=== PATIENT | female | born 1955 | race Caucasian/White ===

== ENCOUNTER → 2019-12-12 08:13 | Outpatient (CLI) | payer MEDICARE, OTHER, SELFPAY ==
--- NOTE | 2019-12-12 08:17 | US_ITS ---
STUDY: ABDOMINAL ULTRASOUND - RIGHT UPPER QUADRANT REASON FOR VISIT: Female, 63 years old elevated liver enzymes TECHNIQUE: Ultrasound evaluation of the right upper quadrant was performed with real-time and static vu-scale imaging. TECHNICAL QUALITY: Adequate. COMPARISON: None. FINDINGS: Liver: The liver measures 16.2 cm. There is increased echogenicity consistent with fatty infiltration. The bile ducts are within normal limits. There is hepatic color flow. The direction of portal flow is hepatopetal. There is no demonstrated mass lesion. Gallbladder: Normal distended gallbladder. The gallbladder wall measures 2.7 mm. There is a negative sonographic Calero''s sign. There is no pericholecystic fluid. There are no gallstones. Common Bile Duct (C.B.D.): The common bile duct measures 5.5 mm. Pancreas: Normal size of the head, body of the pancreas. The tail portion is obscured due to overlying bowel gas. There is increased echogenicity of the pancreas. There is no demonstrated pancreatic mass or cyst. Right Kidney: Normal size of the right kidney. The right kidney measures 10.7 cm x 4.4 cm x 5.5 cm. Normal renal cortex. The right cortex measures 1.6 cm. There is no demonstrated renal mass or cyst. There is no right hydronephrosis. US/Abdomen Limited IMPRESSION: Fatty infiltration of the liver. Electronically Signed: Bobby Todd, at 13:12 EST , Service support ,
== END ==
PROVIDERS: PCP Nurse Practitioner; Referring Provider Nurse Practitioner; Visit Provider Nurse Practitioner
DX: R74.8 Abnormal levels of other serum enzymes (principal)
CPT/HCPCS: 76705

== ENCOUNTER → 2020-02-25 14:10 | Outpatient (CLI) | payer MEDICARE, OTHER, SELFPAY ==
--- NOTE | 2020-02-25 14:12 | BI_ITS ---
MAMMOGRAPHY - BILATERAL SCREENING REASON FOR EXAM: Female, 64 years old. Routine annual screening examination. PERTINENT HISTORY: Non-contributory. Prior right excisional breast biopsy. TECHNIQUE: Digital bilateral breast yumiko (3D mammographic acquisition) in the CC and MLO projections. 2-D mediolateral oblique (MLO) and craniocaudad (CC) views of both breasts were obtained. CAD: Full Field Digital Mammography with Computer Added Detection was performed. COMPARISON: Comparison is made with prior outside examination dated 07/12/2016. FINDINGS: Breast Composition: The breasts are heterogeneously dense, which may obscure small masses. There are no dominant masses or suspicious calcifications. Stable small benign appearing bilateral axillary lymph nodes. No other significant abnormalities are identified. There has been no significant change since the prior study. BI/SCRN MAMM (CAD)W/YUMIKO BILAT IMPRESSION: Stable bilateral screening mammogram. Yearly follow-up mammogram recommended. (A) ASSESSMENT CATEGORY: BIRADS Category 2: Benign. A letter regarding these results will be sent to the patient by the facility within 30 days. Approximately 10% of breast cancers are not detected by mammography. A normal mammogram should not delay biopsy of a clinically suspicious abnormality. [id number] Electronically Signed: Bobby Todd MD at 15:28 EST , Service support ,
--- NOTE | 2020-02-25 14:15 | BD_ITS ---
STUDY: DUAL ENERGY X-RAY ABSORPTIOMETRY / DXA REASON FOR EXAM: Female, 64 years old. 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 COMPARISON: None. FINDINGS: Lumbar Spine (L1-L4): g/cm2 (1.213) / T-score (0.1) / Z-score (1.7) Findings are suggestive of normal bone density with a low fracture risk. Left Femur Total: g/cm2 (0.897) / T-score (-0.9) / Z-score (0.3) Left Femoral Neck: g/cm2 (0.867) / T-score (-1.2) / Z-score (0.2) Right Femur Total: g/cm2 (0.859) / T-score (-1.2) / Z-score (0.0) Right Femoral Neck: g/cm2 (0.819) / T-score (-1.6) / Z-score (-0.1) BD/Dexa Bone Density Study IMPRESSION: The patient is considered osteopenic as outlined below according to World [employer] Organization (WHO) criteria with a moderate fracture risk. Reference Information: The T-score is the number of standard deviations above or below the standard which is normal for young adults at their peak bone mineral density. The World Health Organization (WHO) interprets the T-scores as follows: Above -1 Normal bone density Between -1 and -2.5 Osteopenia Equal to / or below -2.5 Osteoporosis As a practical clinical guideline, osteopenia may be graded as follows: Mild -1 through -1.5 Moderate -1.6 through -2.0 Severe -2.1 through -2.4 The Z-score is the number of standard deviations above or below age-matched controls. A Z-score of less than -1.5 would be considered abnormal. References: 1. NIH Osteoporosis and Related Bone Diseases www osteo.org 2. International Society for Clinical Densitometry www iscd.org 3. National Osteoporosis Foundation www nof.org Electronically Signed: Bobby Todd MD at 12:22 EST , Service support ,
== END ==
PROVIDERS: PCP Nurse Practitioner; Visit Provider Nurse Practitioner
DX: Z12.31 Encounter for screening mammogram for malignant neoplasm of breast (principal); Z78.0 Asymptomatic menopausal state
CPT/HCPCS: 77063; 77067; 77080

== ENCOUNTER 2020-09-23 15:00 | Outpatient (RCR) | payer MEDICARE, OTHER, SELFPAY ==
--- NOTE | 2020-09-07 12:35 | HP.PTEVAL ---
Patient's Visit Information PITA CALDERON is a 64 year old F referred to Physical Therapy by ASHISH Sen with a diagnosis of L hip pain. Date of Evaluation: 09/01/20 Physical Therapist: Pascual Lance DPT - Visit Plan Frequency: 2x /Week Duration: 4 Weeks Plan: Start with light extension progression, light core stability, and IT abd/hip ER stretching as tolerated. Progress as patient progresses. - Subjective Pt. is here today for her initial evaluation with diagnosis of L hip pain. She has been reporting increased L hip pain for a few months now. She reports having xray showing arthritis in her hip. She reports overall pain lateral hip pain and posterior hip pain. She reports increased pain walking, standing, bending over. Decreased pain: sitting, staying off her hip. Pt. denies N/T in either LE. Pt. denies groin pain. She is sleeping okay, but does have increased stiffness in AMs. Pt. has had no changes in B/B. She does reports a heavy feeling in her L thigh at times with walking and posterior thigh pain with walking at times, especially in AMs and after prolonged sitting. Pt. is hopeful to reduce her symptoms of her L leg allowing increased tolerance to all daily activities. - Pain L lateral hip Pain Intensity (Out of 10): 2 Pain Intensity Range: 0, 7 L posterior thigh Pain Intensity (Out of 10): 2 Pain Intensity Range: 0, 7 - Objective POSTURE: Pt. has decent posture in stance. No lateral shift noted. Pt. has normal hip positioning in stance. She has anterior pelvic tilt and increased lumbar flexion in stance. PALAPTION: Pt. has tenderness at L PSIS and along SI joint on L side. Pt. has no lateral greater trochanteric pain. pt. does have some tenderness along piriformis muscle belly. NEURO: pt. has normal sensation and normal DTR of BLEs. Pt. is able to rise on heels and toes without issues or loss of balance. ROM: LUMABR SPINE: flexion min loss increase NW, EXT min/mod loss increase NW, SB min loss Navjot NE, rotation min loss bilat NE. L hip: flexion 120deg NE, abd 45deg NE, ER 75deg NE, IR 30deg NE. MMT: PT. has 4+/5 strength throughout BLEs. Pt. has poor+ core strength. 4/5 B hip extnsion and abd. GAIT: pt. has decent gait pattern. She has reduced hip extension bilat resulting in decreased step length. Pt. did have positive response with walking post extension. - Special Tests L/S Slump test left side: Positive L/S Slump test right side: Negative L/S Left Straight Leg Raise: Negative L/S Right Straight Leg Raise: Negative L/S Left Femoral Nerve Tension: Negative L/S Right Femoral Nerve Tension: Negative Lumbar Standing: Flexion - Mechanical Response: No effect Lumbar Standing: Flexion - Symptoms During Testing: Increases Lumbar Standing: Flexion - Symptoms After Testing: No worse Lumbar Standing: Extension - Mechanical Response: No effect Lumbar Standing: Extension - Symptoms During Testing: Decreases Lumbar Standing: Extension - Symptoms After Testing: Better Comments:: pt. repots being able to walk better post REIL, small ROM note Lumbar Standing: Right Side Glides - Mechanical Response: No effect Lumbar Standing: Right Side [place] - Symptoms During Testing: No effect Lumbar Standing: Right Side [place] - Symptoms After Testing: No effect Lumbar Standing: Left Side [place] - Mechanical Response: No effect Lumbar Standing: Left Side [place] - Symptoms After Testing: No effect Lumbar Lying: Flexion - Symptoms After Testing: No effect Lumbar Lying: Extension - Mechanical Response: No effect Lumbar Lying: Extension - Symptoms During Testing: Increases Lumbar Lying: Extension - Symptoms After Testing: Better Comments:: again she reports decreased symptoms with walking after extension progressi L Hip Scour: Negative L Hip PATTI - Intraarticular Pathology: Negative L Hip FADDIR - Labrum: Negative L Hip Jose - IT Band: Negative Comment: Tightness noted in hip ER and IT band, no pain noted - Goals Goal 1:: LTG: Pt. to be I with HEP. Goal Time Frame: 2-4 Weeks Goal 2:: STG: Pt. to have increased lumbar and hip ER ROM by 25% allowing for increased general mobility. Goal Time Frame: 2 Weeks Goal 3:: LTG: Pt. to have increased tolerance with walking, being able to walk to complete 6 MWT with 1400' with 0-2/10 pain in LLE. Goal Time Frame: 4-6 Weeks Goal 4:: LTG: Pt. to have increased B hip and core strength increased to at least 4+/5 without increase in symptoms. Goal Time Frame: 4-6 Weeks Goal 5:: STG: Pt. to be able to sit for 20-30minutes then walk with 0-2/10 pain in LLE. Goal Time Frame: 2-4 Weeks Goal 6:: LTG: Pt. to complete all work and recreational activities with 0-2/10 pain in L hip and L LE. Goal Time Frame: 4-6 Weeks - Rehabilitation Potential Physical Therapy Diagnosis: Pt. has signs and symptoms consistent with L hip pain. She has good ROM of her L hip and decent strength. I do think her symptoms might be more originating from lumbar spine or more of a piriformis syndrome. I would like her to work on ROM of lumbar spine and hip ER progressing to stability exercises of B hips and lumbar spine as tolerated. Rehabilitation Potential: Excellent - Anticipated Interventions Patient/Client Instruction: Educate patient on: Condition, Plan of Care, Risk Factors, Benefits of Fitness Program For the Purpose of:: To foster healthy habits, To improve decision making, To facilitate caregiver knowledge, To improve self management, To prevent re-injury, To improve ability to perform tasks related to life management Therapeutic Exercise to Include: Strength training, Balance training, Coordination, Body mechanics, Postural training, Flexibilty training, Gait and locomotor training, Passive ROM, Active ROM, Dynamic Lumbar Stabilization, Maria Eugenia Exercises For the Purpose of:: To decrease pain, To increase ROM, To improve nutrient delivery to tissue, To increase oxygenation perfusion, To improve muscle performance and motor function, To improve ability to perform ADL's, To improve gait and locomotor functions, To improve health of tissue, To decrease soft tissue restriction, To increase flexibility/ROM Manual Therapy Techniques to Include: Mobilization, Functional dry needling, Soft tissue mobilization For the Purpose of:: To decrease pain, To decrease swelling/inflammation, To increase ROM, To improve nutrient delivery to tissue, To increase oxygenation perfusion Cryotherapy (ice pack, ice massage): Yes Ultrasound (thermal/non thermal): Yes For the Purpose of:: To decrease pain, To decrease swelling/inflammation, To increase ROM Thank you for the opportunity to evaluate your patient. For Medicare and Medicare HMO plans, please review the plan of care and approve it. It will need to be FAXED BACK to us at [phone] for Medicare purposes. For Medicare only, by signing this I certify the plan of care. Please let me know if there are questions or concerns regarding this plan of care. Physician Signature: Date:
--- NOTE | 2020-09-23 15:22 | HP.PTDCSUM_ITS ---
It has been my pleasure to treat PITA CALDERON referred by Malini Faulkner, ASHISH, with the diagnosis of L hip pain for a total of 6 visit(s). Discharge Date: 09/23/20 Please see the following information for a summary of their discharge status. Subjective: Pt feels that PT went well and will continue with HEP. She still has pain going up the steps a little bit. She feels comfortable with her HEP. Her biggest goal was to walk around [place].... she just gets fatigued and not horrible pain. L lateral hip Pain Intensity (Out of 10): 0 L posterior thigh Pain Intensity (Out of 10): 0 % Improvement: 65 Objective/Function: LE MMT: B hip flex 4/5, B hip abd 4/5, B hip ext 4-/5, B knee flex 4/5, B knee ext 4/5. Pt is limited with hip IR still B but functional. Pt's hip ER is good. Goal 1:: LTG: Pt. to be I with HEP. Goal Progress: Goal Met Goal 2:: STG: Pt. to have increased lumbar and hip ER ROM by 25% allowing for increased general mobility. Goal Progress: Goal Met Goal 3:: LTG: Pt. to have increased tolerance with walking, being able to walk to complete 6 MWT with 1400' with 0-2/10 pain in LLE. Goal Progress: Goal Met Goal 4:: LTG: Pt. to have increased B hip and core strength increased to at least 4+/5 without increase in symptoms. Goal Progress: Progressing Goal 5:: STG: Pt. to be able to sit for 20-30minutes then walk with 0-2/10 pain in LLE. Goal Progress: Goal Met Goal 6:: LTG: Pt. to complete all work and recreational activities with 0-2/10 pain in L hip and L LE. Goal Progress: Goal Met Plan: DC PT to HEP Discharge Comments: DC PT to HEP If there are questions or concerns regarding this patient's physical therapy, please feel free to call me at [phone]. Thank you for the referral of this patient. Sincerely, Ally Brooks, MPT Balance/Gait/Functional tests - Balance/Special Test Scores Lower Extremity Functional Score: 69
== END 2020-09-23 19:00 | disposition home or self-care (01) ==
LOC: PT 15:00
PROVIDERS: PCP Nurse Practitioner; Referring Provider Nurse Practitioner; Visit Provider Nurse Practitioner
DX: M25.552 Pain in left hip (principal)
CPT/HCPCS: 97110; 97140; 97161; 97530

== ENCOUNTER → 2021-11-25 | Outpatient (CLI) | payer MEDICARE, OTHER, SELFPAY ==
--- NOTE | 2021-11-25 13:08 | US_ITS ---
STUDY: THYROID ULTRASOUND REASON FOR EXAM: Female, 65 years old. Palpably enlarged thyroid TECHNIQUE: Ultrasound evaluation of the thyroid was performed with real-time and static vu-scale imaging. COMPARISON: None. FINDINGS: RIGHT LOBE: The right lobe of the thyroid gland measures 5.0 x 1.4 x 1.3 cm. There is a heterogeneous echotexture. There is a simple 2 x 4 x 2 mm cyst. LEFT LOBE: The left lobe of the thyroid gland measures 4.8 x 1.4 x 1.1 cm. There is a heterogeneous echotexture. There is a complex solid/cystic 1.1 x 0.8 x 0.4 cm nodule. No specific follow-up needed. ISTHMUS: The isthmus measures 1.8 mm. The regional lymph nodes are normal. US/Head/Neck Soft Tissue IMPRESSION: Borderline enlarged thyroid with a complex solid and cystic 1.1 x 0.8 x 0.4 cm nodule. No specific follow-up needed. Simple 2 x 4 x 2 mm cyst in the right thyroid lobe. No specific follow-up needed Electronically Signed: Kraig Bourne MD at 13:44 EDT ,
== END | disposition home or self-care (01) ==
LOC: US 13:04
PROVIDERS: PCP Nurse Practitioner Family; Referring Provider Nurse Practitioner Family; Visit Provider Nurse Practitioner Family
DX: E04.9 Nontoxic goiter, unspecified (principal)
CPT/HCPCS: 76536

== ENCOUNTER → 2021-12-03 | Outpatient (CLI) | payer MEDICARE, OTHER, SELFPAY ==
--- NOTE | 2021-12-03 12:28 | BI_ITS ---
MAMMOGRAPHY - BILATERAL SCREENING REASON FOR EXAM: Female, 65 years old. Routine annual screening examination. PERTINENT HISTORY: Non-contributory. Remote right excisional breast biopsy. TECHNIQUE: Digital bilateral breast yumiko (3D mammographic acquisition) in the CC and MLO projections. 2-D mediolateral oblique (MLO) and craniocaudad (CC) views of both breasts were obtained. CAD: Full Field Digital Mammography with Computer Added Detection was performed. COMPARISON: Comparison is made with prior study dated 02/25/2020. FINDINGS: Breast Composition: The breasts are heterogeneously dense, which may obscure small masses. There are no dominant masses or suspicious calcifications. No other significant abnormalities are identified. There has been no significant change since the prior study. BI/SCRN MAMM (CAD)W/YUMIKO BILAT IMPRESSION: Stable bilateral screening mammogram. Yearly follow-up mammogram recommended. (A) ASSESSMENT CATEGORY: BIRADS Category 1: Negative. A letter regarding these results will be sent to the patient by the facility within 30 days. Approximately 10% of breast cancers are not detected by mammography. A normal mammogram should not delay biopsy of a clinically suspicious abnormality. [id number] Electronically Signed: Bobby Todd MD at 13:23 EDT ,
== END | disposition home or self-care (01) ==
LOC: OPBI 12:27
PROVIDERS: PCP Nurse Practitioner Family; Referring Provider Nurse Practitioner Family; Visit Provider Nurse Practitioner Family
DX: Z12.31 Encounter for screening mammogram for malignant neoplasm of breast (principal)
CPT/HCPCS: 77063; 77067

== ENCOUNTER 2022-08-25 17:24 | Emergency (ER) | payer MEDICARE, OTHER, SELFPAY ==
[2022-08-25 17:27] VITALS: BP 118/71; PULSE 81; RESP 14; TEMP 36.2; O2SAT 97; BMI 34.0
--- NOTE | 2022-08-25 17:33 | EX.ED.UPPERE ---
HPI <LUCIEN Mckeon - Last Filed: 08/25/22 18:15> History of Present Illness Chief Complaint: Upper Extremity Injury Narrative Narrative: 66-year-old female tripped and landed on her right shoulder and cannot move it due to pain. No head injury or LOC. She is right-hand dominant. Denies weakness numbness or tingling. PFSH <LUCIEN Mckeon - Last Filed: 08/25/22 18:15> PFSH Medical History Hypertension Home Medications azithromycin 250 mg tablet See Rx Instructions PO .COMPLEX #6 tabs 09/11/20 [Rx Last Taken Unknown] cetirizine 10 mg capsule (All Day Allergy (cetirizine)) 10 mg PO DAILY PRN 09/11/20 [History Last Taken Unknown] fluoxetine 10 mg capsule 10 mg PO DAILY 09/11/20 [History Last Taken Unknown] levothyroxine 13 mcg capsule 13 mcg PO DAILY 09/11/20 [History Last Taken Unknown] losartan 25 mg tablet 25 mg PO DAILY 09/11/20 [History Last Taken Unknown] vitamin B comp and C no.3 15 mg-10 mg-50 mg-5 mg-300 mg capsule (B Complex Plus Vitamin C) 1 cap PO DAILY 09/11/20 [History Last Taken Unknown] hydrocodone-acetaminophen 5-325mg 5mg-325mg 1 tab PO Q6H PRN pain 3 days #12 tabs 08/25/22 [Rx Last Taken Unknown] Allergy/AdvReac Type Severity Reaction Status Date / Time Penicillins Allergy Unknown UNKNOWN Verified 08/25/22 17:27 Sulfa (Sulfonamide Allergy Unknown UNKNOWN Verified 08/25/22 17:27 Antibiotics) Family History Other Heart disease Social History Smoking Status: Never smoker ROS <LUCIEN Mckeon - Last Filed: 08/25/22 18:15> ROS ED ROS Narrative CVS: Negative for chest pain. Respiratory: Negative for shortness of breath. GI: Negative for nausea, vomiting. Neuro: Negative for motor/sensory dysfunction. Skin: Negative for wound. Musc: Positive for right shoulder pain, trauma. Heme: Negative for easy bruising, bleeding, lymphadenopathy. EXAM <LUCIEN Mckeon - Last Filed: 08/25/22 18:15> Physical Exam Narrative Exam Narrative: CONST: Patient sitting in no acute distress. EYES: Normal inspection. HEAD: Normocephalic atraumatic. NECK: Normal inspection. No midline spinal tenderness, no step off or crepitus. RESP: No respiratory distress, CTAB. CVS: Regular rate and rhythm, no murmur, no gallop. ABD: Soft and nontender, no guarding or rebound, nondistended. SKIN: Color normal, no rash, warm, dry, intact. EXTREMITIES: Holding right arm adducted, tender to palpation over anterior shoulder and proximal humerus. Sensation intact in axillary median radial ulnar distributions, distal strength intact, 2+ radial pulse with brisk cap refill. No tenderness of the LUE or bilateral lower extremities. NEURO: Oriented x4. PSYCH: Normal affect. Const Vital Signs: 08/25/22 17:27 Temperature 97.1 F L Temperature Source Temporal Pulse Rate 81 Respiratory Rate 14 Blood Pressure 118/71 Blood Pressure Mean 86 Pulse Ox 97 Oxygen Delivery Method Room Air MDM <LUCIEN Mckeon - Last Filed: 08/25/22 18:15> [facility] Narrative Medical decision making narrative: History gathered from patient and spouse Patient had mechanical fall onto her right shoulder. Holding it abducted and diffusely tender over the shoulder and proximal humerus. No deformity. Distally neurovascularly intact. ED attending interpretation of right shoulder x-ray shows acute proximal humerus fracture so she was placed in a sling and swath and treated with morphine. I prescribed [place] and provided orthopedic referral and she was discharged in stable condition. Differential: Shoulder contusion, fracture, dislocation <Dr. Drew Smith MD - Last Filed: 08/25/22 18:41> [facility] Narrative Medical decision making narrative: History gathered from patient and spouse Patient had mechanical fall onto her right shoulder. Holding it abducted and diffusely tender over the shoulder and proximal humerus. No deformity. Distally neurovascularly intact. ED attending interpretation of right shoulder x-ray shows acute proximal humerus fracture so she was placed in a sling and swath and treated with morphine. I prescribed [place] and provided orthopedic referral and she was discharged in stable condition. Differential: Shoulder contusion, fracture, dislocation I have personally performed a face to face assessment of the patient and have reviewed the EUSEBIO Note. I performed a substantive portion of the visit including all aspects of the following. My murillo findings include: History is remarkable for mechanical fall. She landed on her right shoulder. She presents because she cannot move her right upper extremity without causing significant pain in the shoulder. She denies loss of conscious. Denies headache. She denies neck pain. She denies paresthesia, anesthesia motors. She denies cardiac respiratory symptoms. Denies black or maroon-colored stool. Exam is remarkable for patient holding her right upper extremity internally rotated and abducted. Axillary, median, radial and ulnar function intact. There is no pain the patient over the digits, hand or wrist. Medical Decision Making three-view x-ray of the shoulder was obtained which reveals a nondisplaced fracture proximal humerus at the surgical neck. This was independently reviewed interpreted by me. Patient was playing is in a sling and swath. She was instructed to do med pendulous movement after couple of days and she was referred to the orthopedist on-call. Other additions or changes: Patient did receive an additional dose of opiate analgesia prior to discharge. She was sent home with prescription for opiate analgesia. Discharge Plan Triage Chief Complaint: Upper Extremity Injury ED Midlevel Provider: Matilda Gama ED Provider: Drew Smith Dx/Rx/DC Orders Clinical Impression: Fracture of humerus, proximal, right, closed Instructions: ED Fracture, Shoulder Prescriptions: New hydrocodone-acetaminophen 5-325 mg tablet 1 tab PO Q6H PRN (Reason: pain) 3 Days Qty: 12 0RF No Action fluoxetine 10 mg capsule 10 mg PO DAILY losartan 25 mg tablet 25 mg PO DAILY levothyroxine 13 mcg capsule 13 mcg PO DAILY All Day Allergy (cetirizine) 10 mg capsule 10 mg PO DAILY PRN B Complex Plus Vitamin C [id number] mg capsule 1 cap PO DAILY Rx Instructions: give with food (meal/snack) azithromycin 250 mg tablet See Rx Instructions PO .COMPLEX Qty: 6 0RF Rx Instructions: take 500 mg today (day 1), then 250 mg for 4 days (days 2-5) PO Primary Care Provider: Jenny Lynch Referrals: Larry Santiago MD [Med Staff - Active Staff] - Jenny Lynch NP-C [Primary Care Provider] - Activity Restrictions/Additional Instructions: Wear the sling and swath at all times unless bathing or changing clothes. You do not want to move your shoulder away from your body while it is healing. Call the orthopedic doctor tomorrow for a follow-up appointment. Disposition Disposition: Home, Self Care
[2022-08-25] MEDS: Ondansetron ODT 4 MG Tablet PO (17:41)
[2022-08-25] MEDS: Morphine 4 MG/ML Syringe IM (17:41)
--- NOTE | 2022-08-25 17:45 | RAD_ITS ---
INDICATION: Injury/Pain EXAMINATION/TECHNIQUE: X-RAY - RIGHT XR Shoulder Min 2 Views COMPARISON: No previous relevant examinations for comparison. FINDINGS: SOFT TISSUES: No soft tissue swelling or gas. No radiopaque foreign body. BONES/JOINTS: 1. There is deformity of the proximal humerus at the level of the surgical neck consistent with a mildly impacted minimally angulated fracture. No dislocation. No fracture fragments noted. 2. There is normal glenohumeral alignment. There is normal alignment of the acromioclavicular joint. 3. The clavicle, acromion, scapula and RIGHT rib cage have normal appearance. RAD/Shoulder min 2 Views IMPRESSION: 1. Mildly impacted minimally angulated fracture of the surgical neck of the humerus. No dislocation. 2. No other acute bony changes. Electronically Signed: Heri Hanley MD at 18:01 EDT ,
[2022-08-25] MEDS: HYDROcodone Bitartrate/Apap 5/325 Tablet PO (18:36)
[2022-08-25 19:19] VITALS: RESP 17
== END 2022-08-25 19:19 | disposition home or self-care (01) ==
LOC: ED 18:19
PROVIDERS: Emergency Provider Emergency Medicine; PCP Nurse Practitioner Family; Visit Provider Emergency Medicine
DX: S42.214A Unspecified nondisplaced fracture of surgical neck of right humerus, initial encounter for closed fracture (principal); W18.09XA Striking against other object with subsequent fall, initial encounter; I10 Essential (primary) hypertension; Z79.899 Other long term (current) drug therapy
CPT/HCPCS: 73030; 96372; 99283

== ENCOUNTER 2022-11-07 14:30 | Outpatient (RCR) | payer MEDICARE, OTHER, SELFPAY ==
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
--- NOTE | 2022-10-03 14:02 | HP.PTREVAL ---
Re-Evaluation Intro: Dr. Larry Trejo MD, It has been my pleasure to treat PITA CALDERON over the last 8 visits for PROXIMAL CLOSED FRACTURE OF R HUMERUS. Please see the progress note below for an update on the physical therapy plan of care! Subjective Subjective: PATIENT REPORTS SHE REALLY HASN'T BEEN HAVING MUCH PAIN BUT SHE DOES GET A PULLING SENSATION IN THE FRONT OF HER SHOULDER. Objective Objective/Function: PATIENT WAS SEEN TODAY FOR RE-ASSESSMENT OF PROGRESS TOWARD THE SET PT GOALS AND THE NEED FOR FURTHER PHYSICAL THERAPY VS READINESS FOR DISCHARGE. PATIENT IS MAKING GOOD PROGRESS WITH PT AND IS A GOOD CANDIDATE TO CONTINUE PT UPON RETURN FROM VACATION IF DR. TREJO CONCURS AT RE-CHECK. UPON EXAM TODAY: R UE PROM: FLEXION 130 DEG, ABD 90 DEG, ER 65 DEG, IR 65 DEG (ROTATION MEASURED WITH 60 DEG ABD), ELBOW EXT FULL, ELBOW FLEX 140 DEG. PATIENT HAS AN EX PROGRAM FOR VACATION. Plan Plan Plan: BEGIN STRENGTHENING (AND CONTINUE ROM) UPON RETURN FROM VACATION IF OK'D BY DR. TREJO. Balance/Gait/Functional tests Balance/Special Test Scores Quick DASH Score: 29.5450 Goals Goals Goal 1:: PROTECT HEALING FRACTURE Goal Time Frame: 6-8 Weeks Goal Progress: Progressing Goal 2:: INCREASE FUNCTIONAL ROM OF R UE WITHIN ANY LIMITS GIVEN BY PHYSICIAN TO EASE ADL'S Goal Time Frame: 6-8 Weeks Goal Progress: Progressing Goal 3:: IMPROVE R UE FUNCTIONAL STRENGTH WITHIN ANY LIMITS GIVEN BY PHYSICIAN TO EASE ADL'S Goal Time Frame: 6-8 Weeks Goal 4:: PATIENT WILL BE INDEP WITH [facility] FOR CONTINUED IMPROVEMENT ONCE FORMAL PHYSICAL THERAPY CONCLUDES Goal Time Frame: 8-12 Weeks Anticipated Interventions Anticipated Interventions Patient/Client Instruction: Educate patient on: Condition, Plan of Care and Risk Factors For the Purpose of:: To improve self management Therapeutic Exercise to Include: Strength training, Body mechanics, Postural training, Flexibilty training, Neuromotor development, Passive ROM, Active ROM and Scapular Strength/Stabilization Comment: SEE POC For the Purpose of:: To decrease pain, To decrease swelling/inflammation, To increase ROM, To improve muscle performance and motor function, To increase tolerance to activity/condition/position, To improve performance and independence with ADL's and To improve ability of physical actions for home/community/work/leisure Cryotherapy (ice pack, ice massage): Yes For the Purpose of:: To decrease pain and To decrease swelling/inflammation Re-Evaluation Ending Re-evaluation ending: Please do not hesitate to contact me at [phone] by phone or if you have questions or concerns regarding this new plan of care! Sincerely, Sarina León, PT, Cert MDT
--- NOTE | 2022-11-17 14:21 | HP.PT.NRP ---
Patient Information Patient Information: PITA CALDERON was seen in my office for initial evaluation on 08/31/22. The following Plan of Care was established for this patient: POC Established Initial Frequency: 2-3x /Week Initial Duration: 4-6 Weeks Anticipated Interventions Patient/Client Instruction: Educate patient on: Condition, Plan of Care and Risk Factors For the Purpose of:: To improve self management Therapeutic Exercise to Include: Strength training, Body mechanics, Postural training, Flexibilty training, Neuromotor development, Passive ROM, Active ROM and Scapular Strength/Stabilization For the Purpose of:: To decrease pain, To decrease swelling/inflammation, To increase ROM, To improve muscle performance and motor function, To increase tolerance to activity/condition/position, To improve performance and independence with ADL's and To improve ability of physical actions for home/community/work/leisure Cryotherapy (ice pack, ice massage): Yes For the Purpose of:: To decrease pain and To decrease swelling/inflammation Last Seen Last Seen: This patient was last seen in our office . Pertinent comments regarding their Physical therapy will appear below: Patient apparently called and cancelled all remaining appointments per doctor and getting MRI. At this point I will be discontinuing this patient from physical therapy. I would be happy to see this patient again in the future if found appropriate by the physician. Thank you! Sarina León, PT, Cert MDT Balance/Gait/Functional tests Balance/Special Test Scores Quick DASH Score: 29.5431
== END 2022-11-07 19:00 | disposition home or self-care (01) ==
LOC: PT 14:30
PROVIDERS: PCP Nurse Practitioner Family; Referring Provider Orthopaedic Surgery Sports Medicine; Visit Provider Orthopaedic Surgery Sports Medicine
DX: S42.201D Unspecified fracture of upper end of right humerus, subsequent encounter for fracture with routine healing (principal)
CPT/HCPCS: 97110; 97140; 97162; 97164; 97530

== ENCOUNTER → 2022-12-01 | Outpatient (CLI) | payer MEDICARE, OTHER, SELFPAY ==
--- NOTE | 2022-12-01 10:39 | MRI_ITS ---
STUDY: MRI RIGHT SHOULDER REASON FOR EXAM: Female, 66 years old. Pain - assess for rotator cuff tear. TECHNIQUE: Standardized fat and water weighted pulse sequences were obtained in all 3 orthogonal planes. COMPARISON: Right shoulder radiographs dated 08/25/2022 and 10/17/2022. FINDINGS: There is a partial articular supraspinatus tendon avulsion (PASTA) lesion, measuring 2.8 cm in length (coronal T2 series 6 images 8-13). Normal infraspinatus tendon. There is subscapularis tendinosis. Normal teres minor tendon. Normal supraspinatus muscle. Normal infraspinatus muscle. Normal subscapularis muscle. Normal teres minor muscle. Normal glenohumeral articulation. There is a chronic comminuted fracture of the right humeral head and neck. There is persistent marrow edema in the right proximal humeral metadiaphysis. Normal biceps labral complex. Normal intracapsular long biceps tendon. Normal labrum. Normal capsulo-ligamentous complex. Normal rotator interval. There is mild hypertrophic acromioclavicular arthrosis, with inferior osteophyte formation, with mild effacement of the supraspinatus myotendinous junction (coronal T2 series 6 image 10). There is a Type II morphology (curved), with a neutral orientation. There is trace subacromial-subdeltoid bursal fluid. Normal visualized coracohumeral and coracoacromial ligaments. Normal quadrilateral space. Normal axillary space. Normal deltoid muscle. Normal trapezius muscle. MRI/Upper Ext Joint Only(Routine) IMPRESSION: Partial articular supraspinatus tendon avulsion (PASTA) lesion, measuring 2.8 cm in length. Subscapularis tendinosis. Chronic comminuted fracture of the right humeral head and neck. Persistent marrow edema in the right proximal humeral metadiaphysis. Mild hypertrophic acromioclavicular arthrosis, with inferior osteophyte formation, with mild effacement of the supraspinatus myotendinous junction. Minimal subacromial-subdeltoid bursitis. Electronically Signed: Tye Holden MD at 14:41 EDT ,
== END | disposition home or self-care (01) ==
LOC: MRI 10:10
PROVIDERS: PCP Nurse Practitioner Family; Referring Provider Orthopaedic Surgery Sports Medicine; Visit Provider Orthopaedic Surgery Sports Medicine
DX: S42.201A Unspecified fracture of upper end of right humerus, initial encounter for closed fracture (principal); X58.XXXA Exposure to other specified factors, initial encounter
CPT/HCPCS: 73221

== ENCOUNTER → 2022-12-26 | Outpatient (CLI) | payer MEDICARE, OTHER, SELFPAY ==
--- NOTE | 2022-12-26 13:15 | MRI_ITS ---
STUDY: MRI LEFT ELBOW REASON FOR EXAM: Female, 67 years old. Evaluate for calcific deposit olecranon bursa. TECHNIQUE: Standardized fat and water weighted pulse sequences were obtained in all 3 orthogonal planes. COMPARISON: Left elbow radiographs dated 06/01/2022. FINDINGS: There is moderate arthrosis of the radio-capitellum articulation with joint space narrowing, marginal osteophyte formation, articular surface irregularity and tiny foci of subchondral cyst formation. There is an old healed fracture deformity of the radial head. Normal radial collateral ligamentous complex. Normal common extensor tendon. There is mild arthrosis of the ulnotrochlear articulation with small marginal osteophyte formation. Normal ulnar collateral ligamentous complex. Normal common flexor tendon. There is a small elbow joint effusion. The cubital tunnel is normal, with a normal ulnar nerve. Normal biceps tendon and distal insertion. Normal lacertus fibrosis. Normal brachialis musculotendinous insertion. Normal triceps tendon and teno-osseous insertion. Normal olecranon process. The visualized distal humerus, proximal radius, and ulna are intact. The visualized muscles of the distal arm and proximal forearm are normal. The soft tissue structures are unremarkable. MRI/Upper Ext Joint Only(Routine) IMPRESSION: Moderate degenerative arthrosis of the radiocarpal joint. Old healed fracture deformity of the radial head. Mild degenerative arthrosis of the ulnotrochlear joint. Small elbow joint effusion. Electronically Signed: Tye Holden MD at 14:28 EST ,
== END | disposition home or self-care (01) ==
LOC: MRI 12:19
PROVIDERS: PCP Nurse Practitioner Family; Referring Provider Orthopaedic Surgery Sports Medicine; Visit Provider Orthopaedic Surgery Sports Medicine
DX: M25.422 Effusion, left elbow (principal); M19.032 Primary osteoarthritis, left wrist; Z87.81 Personal history of (healed) traumatic fracture
CPT/HCPCS: 73221

== ENCOUNTER → 2023-02-16 | Outpatient (CLI) | payer MEDICARE, OTHER, SELFPAY ==
--- NOTE | 2023-02-16 15:03 | BD_ITS ---
STUDY: DUAL ENERGY X-RAY ABSORPTIOMETRY / DXA REASON FOR EXAM: Female, 67 years old. [id number] TECHNIQUE: Bone Mineral Density (BMD) measurements of lumbar spine and bilateral hips were obtained. COMPARISON: Comparison is made with prior study dated February 25, 2020. FINDINGS: Lumbar Spine (L1-L4): g/cm2 (0.954) / T-score (-0.8) / Z-score (1.2) Findings are suggestive of normal bone density with a low fracture risk. Left Femur Total: g/cm2 (0.816) / T-score (-1.0) / Z-score (0.4) Left Femoral Neck: g/cm2 (0.656) / T-score (-1.7) / Z-score (-0.1) Right Femur Total: g/cm2 (0.779) / T-score (-1.3) / Z-score (0.1) Right Femoral Neck: g/cm2 (0.701) / T-score (-1.3) / Z-score (0.4) The T-Scores on the most recent prior examination were: Lumbar Spine (L1-L4): There has been worsening of bone density since the previous examination. Left Femur Total: which represents a worsening of 2.2%. Right Femur Total: which represents a worsening of 2.4%. BD/Dexa Bone Density Study IMPRESSION: The patient is considered osteopenic as outlined below according to World Addison Organization (WHO) criteria with a moderate fracture risk. There has been worsening of bone density since the previous examination. Reference Information: The T-score is the number of standard deviations above or below the standard which is normal for young adults at their peak bone mineral density. The World Health Organization (WHO) interprets the T-scores as follows: Above -1 Normal bone density Between -1 and -2.5 Osteopenia Equal to / or below -2.5 Osteoporosis As a practical clinical guideline, osteopenia may be graded as follows: Mild -1 through -1.5 Moderate -1.6 through -2.0 Severe -2.1 through -2.4 The Z-score is the number of standard deviations above or below age-matched controls. A Z-score of less than -1.5 would be considered abnormal. References: 1. NIH Osteoporosis and Related Bone Diseases www osteo.org 2. International Society for Clinical Densitometry www iscd.org 3. National Osteoporosis Foundation www nof.org Electronically Signed: Bobby Todd MD at 13:02 EST ,
--- NOTE | 2023-02-16 15:03 | BI_ITS ---
MAMMOGRAPHY - BILATERAL SCREENING REASON FOR EXAM: Female, 67 years old. Routine annual screening examination. PERTINENT HISTORY: Non-contributory. Remote right excisional breast biopsy. TECHNIQUE: Digital bilateral breast yumiko (3D mammographic acquisition) in the CC and MLO projections. 2-D mediolateral oblique (MLO) and craniocaudad (CC) views of both breasts were obtained. CAD: Full Field Digital Mammography with Computer Added Detection was performed. COMPARISON: Comparison is made with prior study November 25, 2021 and February 25, 2020. FINDINGS: Breast Composition: There are scattered areas of fibroglandular density. There are no dominant masses or suspicious calcifications. No other significant abnormalities are identified. There has been no significant change since the prior study. BI/SCRN MAMM (CAD)W/YUMIKO BILAT IMPRESSION: Stable bilateral screening mammogram. Yearly follow-up mammogram recommended. (A) ASSESSMENT CATEGORY: BIRADS Category 2: Benign. A letter regarding these results will be sent to the patient by the facility within 30 days. Approximately 10% of breast cancers are not detected by mammography. A normal mammogram should not delay biopsy of a clinically suspicious abnormality. [id number] Electronically Signed: Bobby Todd MD at 8:31 EST ,
== END | disposition home or self-care (01) ==
LOC: OPBD 15:01
PROVIDERS: PCP Nurse Practitioner Family; Referring Provider Nurse Practitioner Family; Visit Provider Nurse Practitioner Family
DX: Z12.31 Encounter for screening mammogram for malignant neoplasm of breast (principal); Z78.0 Asymptomatic menopausal state
CPT/HCPCS: 77063; 77067; 77080

== ENCOUNTER 2025-01-14 13:14 | Outpatient (CLI) | payer MEDICARE, OTHER, SELFPAY ==
--- NOTE | 2025-01-14 13:26 | CT_ITS ---
PROCEDURE: EXTREMITY LOWER WITHOUT CONTRA 01/14/2025 REASON FOR EXAM: JAMIE PROTOCOL TECHNIQUE: Procedure Code: CTELWO Modality: CT Procedure: EXTREMITY LOWER WITHOUT CONTRA CT of the right hip, right knee and right ankle are performed without contrast. Axial sagittal and coronal reformatted images through the respective joints are obtained. One or more dose reduction techniques were used (e.g., Automated exposure control, adjustment of the mA and/or kV according to patient size, use of iterative reconstruction technique). RADIATION DOSE SUMMARY: Total DLP: 1113.22 MGycm COMPARISON: None FINDINGS: Bones: Bone mineralization is preserved. There is no destructive bone lesion seen. No acute fracture. Joints: Degenerative changes are present in the right hip with subchondral sclerosis and marginal osteophytes. Osteophytes and narrowing of the medial lateral and patellofemoral compartments of the knee are present. The right ankle mortise is preserved. There is no dislocation. There is no joint effusion. Soft Tissues: No soft tissue mass. CT/Extremity Lower without Contra IMPRESSION: No acute fracture. Severe osteoarthritis of the right hip. Severe tricompartmental osteoarthritis of the right knee. No acute fracture dislocation through the right ankle. Reading Location: [id number]
--- NOTE | 2025-01-14 13:37 | EKG12_ITS ---
Test Reason : JAMIE PROTOCOL Blood Pressure : */* mmHG Vent. Rate : 67 BPM Atrial Rate : 67 BPM P-R Int : 192 ms QRS Dur : 90 ms QT Int : 406 ms P-R-T Axes : 61 41 69 degrees QTcB Int : 429 ms Normal sinus rhythm Normal ECG Confirmed by Jerrod Feliciano ([id number]), non linear editor KAZ SMILEY ([id number]) on 01/15/2025 11:38:26 AM Referred By: Danny Hoffmann Confirmed By: Jerrod Feliciano
[2025-01-14 15:05] LABS: Hematocrit 41.8 % (37-47); Hemoglobin 13.7 g/dL (12.0-15.0); Immature Granulocytes Count 0.030 X10^3/uL (0.0-0.0); Mean Corp Hgb Conc 32.8 g/dL (32-36); Mean Corpuscular Volume 92.1 fL (81-99); Mean Platelet Vol. 10.7 fl (6.2-12.0); NRBC Flagged by Analyzer 0 % (0-5); Platelet Count 308 K/mm3 (150-450); RBC Distribution Width CV 12.2 % (11.6-14.6); RBC Distribution Width SD 41.4 fl (35.1-43.9); Red Blood Count 4.54 M/mm3 (4.2-5.4); White Blood Count 6.6 K/mm3 (4.4-11.0)
[2025-01-14 15:16] LABS: Albumin, Serum 4.5 g/dL (3.4-4.8); Anion Gap 10 (5-15); BUN 13 mg/dL (4-19); BUN/Creat Ratio 15.2 RATIO (10-20); Calcium,Total 9.6 mg/dL (7.6-11.0); Carbon Dioxide 26.3 mmol/L (21.0-32.0); Chloride 102 mmol/L (98-108); Glucose 90 mg/dL (70-99); Potassium 4.2 mmol/L (3.3-5.1)
== END 2025-01-14 23:59 | disposition home or self-care (01) ==
LOC: CT 13:14
PROVIDERS: PCP Nurse Practitioner Family; Referring Provider Specialist; Visit Provider Specialist
DX: Z01.818 Encounter for other preprocedural examination (principal); M17.11 Unilateral primary osteoarthritis, right knee; M21.161 Varus deformity, not elsewhere classified, right knee
CPT/HCPCS: 36415; 73700; 80048; 82040; 85025; 93005